=== PATIENT | female | born 1995 | race African-American/Black ===

== ENCOUNTER 2018-08-01 11:58 | Emergency (ER) | payer OTHER ==
[2018-08-01] MEDS ORDERED: diphenhydrAMINE 25 MG Cap PO STA (12:12)
[2018-08-01] MEDS ORDERED: Acetaminophen 325 MG Tab PO ONE (12:12)
--- NOTE | 2018-08-01 12:18 | EDM.PDOC ---
ED HPI GENERAL MEDICAL PROBLEM - General Stated Complaint: BEE STUNG Time Seen by Provider: 08/01/18 12:05 Source of Information: Reports: Patient History Limitations: Reports: No Limitations - History of Present Illness INITIAL COMMENTS - FREE TEXT/NARRATIVE: Patient comes into the emergency department after being stung by a bee on the right thumb. This occurred approximately 45 minutes to one hour ago. The stinger is no longer in the skin that she can tell. Patient denies feeling short of breath, numbness or tingling, chest pain, swollen throat tongue or lips. Patient states the pain is localized on the right thumb she has not taken any Tylenol or ibuprofen. She is also not place any ice or taking any antihistamine prior to arrival. Patient is currently 5 months and was unsure what medications she could take for the discomfort so she presented to the emergency department for further medical evaluation and treatment. Onset: Sudden Quality: Reports: Throbbing Improves with: Reports: Immobilization, Rest Worsens with: Reports: Movement Associated Symptoms: Reports: No Other Symptoms ED ROS GENERAL - Review of Systems Review Of Systems: See Below Constitutional: Reports: No Symptoms HEENT: Reports: No Symptoms Respiratory: Reports: No Symptoms Cardiovascular: Reports: No Symptoms Endocrine: Reports: No Symptoms GI/Abdominal: Reports: No Symptoms : Reports: No Symptoms Musculoskeletal: Reports: No Symptoms Skin: Reports: No Symptoms Neurological: Reports: No Symptoms Psychiatric: Reports: No Symptoms ED EXAM, GENERAL - Physical Exam Exam: See Below Exam Limited By: No Limitations General Appearance: Alert, WD/WN, No Apparent Distress Eye Exam: Bilateral Eye: EOMI, PERRL Nose: Normal Inspection, Normal Mucosa, No Blood Throat/Mouth: Normal Inspection, Normal Lips, Normal Teeth, Normal Gums, Normal Oropharynx, Normal Voice, No Airway Compromise Head: Atraumatic, Normocephalic Neck: Normal Inspection, Supple, Non-Tender, Full Range of Motion Respiratory/Chest: No Respiratory Distress, Lungs Clear, Normal Breath Sounds, No Accessory Muscle Use, Chest Non-Tender Cardiovascular: Normal Peripheral Pulses, Regular Rate, Rhythm, No Edema Neurological: Alert, Oriented, Normal Cognition, Normal Gait, Normal Reflexes Psychiatric: Normal Affect, Normal Mood Skin Exam: Warm, Dry, Intact, Normal Color, No Rash, Other (swelling noted on the right thumb. No redness or warmth noted. ROM intact) Course - Orders/Labs/Meds Orders: Active Orders 24 hr Category Date Time Status Acetaminophen [Tylenol] Med 08/01/18 12:12 Once 325 mg PO NOW ONE diphenhydrAMINE [Benadryl] Med 08/01/18 12:12 Stat 25 mg PO NOW STA Departure - Departure Time of Disposition: 12:22 Disposition: Home, Self-Care 01 Condition: Good Clinical Impression: Bee sting Qualifiers: Encounter type: initial encounter Injury intent: accidental or unintentional Qualified Code(s): T63.441A - Toxic effect of venom of bees, accidental ( unintentional), initial encounter - Discharge Information *PRESCRIPTION DRUG MONITORING PROGRAM REVIEWED*: Not Applicable *COPY OF PRESCRIPTION DRUG MONITORING REPORT IN PATIENT WARNER: Not Applicable Instructions: Bee, Wasp, or Hornet Sting, Adult Additional Instructions: 1. rest 2. apply ice to the area at least 4 times a day for 20 mins 3. Can take benadryl to help reduce the swelling. Follow label on bottle for proper use 4. Can take tylenol for pain relief. Follow label on bottle for proper use 5. Follow up with PCP if not better within the next couple of days 6. Activity and diet as tolerated 7. Any question please feel free to contact us. - My Orders Last 24 Hours: My Active Orders 08/01/18 12:12 Acetaminophen [Tylenol] 325 mg PO NOW ONE diphenhydrAMINE [Benadryl] 25 mg PO NOW STA - Assessment/Plan Last 24 Hours: My Active Orders 08/01/18 12:12 Acetaminophen [Tylenol] 325 mg PO NOW ONE diphenhydrAMINE [Benadryl] 25 mg PO NOW STA Assessment:: 1. bee sting to right thumb Plan: 1. Tylenol given in ER 2. Benadryl given in ER 3. Ice provided in ER to help with swelling of the thumb 4. Education provided regarding safe medication use while 5. Pt is encouraged to ice the area up to 4 times a day for 20 mins at a time to help reduce the swelling 6. All questions and concerns were answered.
== END 2018-08-01 12:35 | disposition home or self-care (01) ==
LOC: VM.ED 11:58
DX: T63.441A Toxic effect of venom of bees, accidental (unintentional), initial encounter (principal)
CPT/HCPCS: 99282; A9270